=== PATIENT | male | born 1955 | race Caucasian/White ===

== ENCOUNTER 2019-09-23 00:17 | Inpatient (IN) | payer MEDICARE ==
[~2019-09-23] VITALS: Ht 157.5 cm; Wt 59.0 kg
[~2019-09-23 00:17] MED LIST: Ativan1 MG PO; CYCL10 PO; DULOXETINE HCL30 MG PO; GABA400 PO; LORA1 PO; NAPR550 PO; SERT100 PO; SERT50 PO; SERTRALINE; Zoloft100 MG PO
[2019-09-23 00:35] LABS: BASOPHILS ABSOLUTE AUTO 0.08 K/mm3 (0.00-0.23); BASOPHILS PERCENT AUTO 0 % (0-2); EOSINOPHILS ABSOLUTE AUTO 0.12 K/mm3 (0.00-0.68); EOSINOPHILS PERCENT AUTO 0 % (0-6); Hemoglobin 15.4 g/dL (13.5-17.5); IMMATURE GRAN PERCENT AUTO 1 % (0-1); LYMPHOCYTES ABSOLUTE AUTO 2.72 K/mm3 (0.84-5.20); LYMPHOCYTES PERCENT AUTO 10 % (21-46); MONOCYTES PERCENT AUTO 5 % (4-13); Mean Corpuscular HGB 29.8 pg (26.0-34.0); Mean Corpuscular HGB Conc 34.2 g/dL (31.5-36.5); Mean Corpuscular Volume 87 fL (80-100); Mean Platelet Volume 10.6 fL (9.1-12.4); NEUTROPHILS ABSOLUTE AUTO 23.97 K/mm3 (1.96-9.15); NEUTROPHILS PERCENT AUTO 84 % (41-73); Platelet Count 296 K/mm3 (150-400); RDW Coefficient Variation 13.1 % (11.7-14.2); RDW Standard Deviation 42.1 fL (35.1-46.3); Red Blood Cell Count 5.17 M/mm3 (4.30-5.90); White Blood Cell Count 28.59 K/mm3 (4.00-11.30)
[2019-09-23 00:46] LABS: Alanine Aminotransfer (ALT/SGP 30 U/L (12-78); Albumin, Blood 4.1 g/dL (3.4-5.0); Alk Phos 102 U/L (50-136); Anion Gap 8 mmol/L (6-16); Aspartate Aminotrans (AST/SGOT 17 U/L (12-37); Bilirubin, Total 0.4 mg/dL (0.1-1.0); Blood Urea Nitrogen 12 mg/dL (8-24); Bun/Creatinine Ratio 10.5 (12.0-20.0); CO2, Blood 22 mmol/L (21-32); Chloride, Blood 104 mmol/L (98-108); Creatinine, Blood 1.14 mg/dL (0.60-1.20); Globulin, Blood 4.1 g/dL (2.2-4.0); Glomerular Filtration Rate >60 (60-); Glucose, Blood 155 mg/dL (70-99); Potassium, Blood 3.7 mmol/L (3.5-5.5); Sodium, Blood 134 mmol/L (136-145); Total Protein, Blood 8.2 g/dL (6.4-8.2)
--- NOTE | 2019-09-23 06:34 | NUR ---
SUMMARY PT IS A&O X4. ADMITTED TO THE FLOOR WITH RLQ PAIN AND NAUSEA. PAIN MANAGED WITH 50 MCG IV FENTANYL. LR INFUSING PER EMAR @ 100 ML/HR. PT RECIEVED 1 DOSE OF ZOSYN IN THE ER AND 1 LITER OF NS. VSS. PT IS VOIDING WNL, PASSING FLATUS. CALL LIGHT IN REACH
--- NOTE | 2019-09-23 07:35 | NUR ---
recvd report from previous shift RN Sandra, pt sleeping in bed, bed in lowest position, call light within reach, bed rails up x 2
--- NOTE | 2019-09-23 13:33 | NUR ---
INTO [facility] VIA GURNEY. PT VOIDED JUST PRIOR TO DEPARTURE FOR [facility]. REPORTS 5/10 ABDOMINAL PAIN. History, Chart, Medications and Allergies reviewed before start of procedure.NPO STATUS CONFIRMED. LUNGS WITH SCATTERED INSPIRATORY WHEEZES AND RHONCHI THAT CLEAR WITH COUGH NOTED. SATS>90% ON RA. 12 LEAD ECG ORDERED. TEMP 99.3 HR TRENDING 110'S.
--- NOTE | 2019-09-23 13:51 | NUR ---
12 LEAD ECG COMPLETED. HR REMAINS 110'S ST. ABDOMEN DISTENDED AND FIRM-EXTREMELY PAINFUL/TENDER TO PALPATION.
--- NOTE | 2019-09-23 15:04 | NUR ---
09/23/19 1504 Tim Bhagat PRE OP ANTIBIOTICS WERE STARTED ORDERED BY Marcela SIDDIQUI RN
--- NOTE | 2019-09-23 15:28 | NUR ---
rounding on pt, still in surgery
--- NOTE | 2019-09-23 17:37 | NUR ---
SHIFT SUMMARY: PT BACK IN ROOM FROM LAP APPENDECTOMY, THREE GAUZE SITES WITH VERO DRAIN LLQ DRAINING SEROSANGUINOUS LIQUID. PT DENIES N/V, DENIES PAIN, FALLS ASLEEP DURING ASSESSMENT. POSTOP VS COMMENCED AND STABLE, SPO2 96% 2L NC. PT'S MOTHER VISITING PT BRIEFLY. PT TOLERATED CLEAR LIQUID
[2019-09-24 04:01] LABS: BASOPHILS ABSOLUTE AUTO 0.01 K/mm3 (0.00-0.23); BASOPHILS PERCENT AUTO 0 % (0-2); EOSINOPHILS PERCENT AUTO 0 % (0-6); Hematocrit 35.2 % (37.0-53.0); Hemoglobin 11.6 g/dL (13.5-17.5); IMMATURE GRAN ABSOLUTE AUTO 0.11 K/mm3 (0.00-0.10); IMMATURE GRAN PERCENT AUTO 1 % (0-1); LYMPHOCYTES PERCENT AUTO 7 % (21-46); MONOCYTES ABSOLUTE AUTO 0.83 K/mm3 (0.16-1.47); MONOCYTES PERCENT AUTO 5 % (4-13); Mean Corpuscular HGB 29.2 pg (26.0-34.0); Mean Corpuscular Volume 89 fL (80-100); Mean Platelet Volume 10.8 fL (9.1-12.4); NEUTROPHILS ABSOLUTE AUTO 14.81 K/mm3 (1.96-9.15); NEUTROPHILS PERCENT AUTO 87 % (41-73); Platelet Count 172 K/mm3 (150-400); RDW Coefficient Variation 13.4 % (11.7-14.2); RDW Standard Deviation 44.5 fL (35.1-46.3); Red Blood Cell Count 3.97 M/mm3 (4.30-5.90); White Blood Cell Count 16.96 K/mm3 (4.00-11.30)
[2019-09-24 04:18] LABS: Anion Gap 5 mmol/L (6-16); Blood Urea Nitrogen 14 mg/dL (8-24); Bun/Creatinine Ratio 11.8 (12.0-20.0); CO2, Blood 25 mmol/L (21-32); Calcium, Blood 8.4 mg/dL (8.5-10.1); Chloride, Blood 103 mmol/L (98-108); Creatinine, Blood 1.19 mg/dL (0.60-1.20); Glomerular Filtration Rate >60 (60-); Glucose, Blood 121 mg/dL (70-99); Potassium, Blood 4.1 mmol/L (3.5-5.5); Sodium, Blood 133 mmol/L (136-145)
--- NOTE | 2019-09-24 05:19 | NUR ---
SHIFT SUMMARY PT IS POSTOP DAY 1 THIS AM FOR LAP APPENDECTOMY. MENTATION HAS IMPROVED THE NIGHT WENT ON, PT WAS QUITE LETHARGIC BUT IS A&OX4 NOW. ABD IS DISTENDED AND FIRM. PT IS NOT PASSING GAS. EDUCATED AND ENCOURAGED USE OF I.S., PT HAS BEEN USING I.S. 10X PER HOUR AT LEAST. PLEASANT AND COOPERATIVE WITH CARE.DRESSING TO ABD IS C/D/I. VERO DRAIN TO L ABD IS DRAINING SS DRAINAGE, 50 ML OVERNIGHT. WEENED OFF SUPPLEMENTAL O2, O2 SATS CURRENTLY 98% ON RA. PT HAS NOT BEEN ABLE TO VOID TONIGHT, STRAIGHT CATH ORDERED FOR BLADDER SCAN >300 ML. PT HAS BEEN STRAIGHT CATH'D TWICE BY THIS RN. PAIN HAS BEEN TOLERABLE WITH PRN HYDROCODONE. TOLERATED CLEAR LIQUIDS DIET TONIGHT WELL. WILL CONT TO MONITOR AND PROVIDE CARE UNTIL PRESUMED BY ONCOMING RN.
[2019-09-24 15:15] LABS: Source, Urine Catheter
[2019-09-24 15:31] LABS: Bilirubin, Urine Neg (Neg); Blood, Urine 4+ (Neg); Glucose Qualitative, Urine Neg (Neg); Ketones, Urine Neg (Neg); Leukocyte Esterase, Urine Neg (Neg); Nitrite, Urine Neg (Neg); Protein, Urine Neg (Neg); Specific Gravity, Urine 1.005 (1.003-1.022); Urobilinogen, Urine NORM (Normal)
[2019-09-24 15:41] LABS: Appearance, Urine Clear (Clear); Color, Urine Yellow (P-Yellow)
[2019-09-24 15:43] LABS: Bacteria Few /hpf; Red Blood Cells, Urine 0-2 /hpf (0-2); Squamous Epithelial Cells Rare /hpf (Few); White Blood Cells, Urine Not Seen /hpf (0-5)
--- NOTE | 2019-09-24 16:36 | NUR ---
SHIFT SUMMARY PATIENT MEDICATED X1 FOR PAIN IN ABDOMEN. PATIENT DENIES NAUSEA AND SHORTNESS OF BREATH. PATIENT BECAME UPSET THIS MORNING AND THREATENED TO LEAVE IF HE COULD NOT GO SMOKE. PATIENT WALKED OUTSIDE TO SMOKE ANFD THEN RETURNED TO ROOM WITHIN 20 MINUTES. PATIENT APOLOGIZED FOR BEING GRUMPY. BLADDER SCAN SHOWED 700 POSTVOID, RITCHIE INSERTED AND DRAINING WELL. PATIENT ABDOMEN SOFTER AND PATIENT REPORTS REDUCED ABDOMINAL PAIN. FAMILY VISITED TODAY. CALL LIGHT IN REACH.
--- NOTE | 2019-09-25 06:43 | NUR ---
SHIFT SUMMARY PT A/O C/O PAIN IN ABD SAYING IT FEELS TIGHT, ABD IS SEVERELY DISTENDED. MEDICATED PER EMAR X2 FOR PAIN. HE WAS ABLE TO GET SBA TO BSC AND PASS A LOT OF GAS AND HE SAID THIS WAS ABLE TO RELIEVE HIS TIGHTNESS FEELING AND WAS ABLE TO GET TO SLEEP AFTER THAT. RITCHIE DRAINING. VERO DRAIN SEROUS OUTPUT WITH DRESSING GETTING DRAINAGE ON IT TOO NEEDING TO BE CHANGED X2. CAN GET IRRITABLE AT TIMES SAYING "HE'S GOING TO CHECK HIMSELF OUT TOMORROW" AND PULL OUT HIS TUBES. LATER HE APOLIGIZED AND SAID IT WAS THE SITUATION HE WAS FRUSTRATED ABOUT. BED ALARM AND TAB ALARM IN USE FOR SAFETY.
--- NOTE | 2019-09-25 18:29 | NUR ---
SHIFT SUMMARY PT EATING AND DRINKING. PT REPORTED PAIN TOLERABLE T/O DAY. PT BEEN UP WITH STEADY GAIT. PT HAS VERO IN PLACE. PT HAS RITCHIE IN PLACE. PT BEEN ASSISTED WITH ADL'S PRN. PT BEEN MED WITH ABX'S ORDERED.
--- NOTE | 2019-09-25 21:49 | NUR ---
PT OUT SMOKING AT 2129 IND, PUSHING WHEELCHAIR. RETURNED TO UNIT AT 2149
[2019-09-26 04:36] LABS: BASOPHILS ABSOLUTE AUTO 0.03 K/mm3 (0.00-0.23); BASOPHILS PERCENT AUTO 0 % (0-2); EOSINOPHILS ABSOLUTE AUTO 0.16 K/mm3 (0.00-0.68); EOSINOPHILS PERCENT AUTO 2 % (0-6); Hematocrit 36.3 % (37.0-53.0); Hemoglobin 12.2 g/dL (13.5-17.5); IMMATURE GRAN ABSOLUTE AUTO 0.08 K/mm3 (0.00-0.10); IMMATURE GRAN PERCENT AUTO 1 % (0-1); LYMPHOCYTES ABSOLUTE AUTO 1.47 K/mm3 (0.84-5.20); LYMPHOCYTES PERCENT AUTO 14 % (21-46); MONOCYTES ABSOLUTE AUTO 0.77 K/mm3 (0.16-1.47); MONOCYTES PERCENT AUTO 7 % (4-13); Mean Corpuscular HGB 29.3 pg (26.0-34.0); Mean Corpuscular HGB Conc 33.6 g/dL (31.5-36.5); Mean Corpuscular Volume 87 fL (80-100); Mean Platelet Volume 10.7 fL (9.1-12.4); NEUTROPHILS ABSOLUTE AUTO 8.02 K/mm3 (1.96-9.15); NEUTROPHILS PERCENT AUTO 76 % (41-73); Platelet Count 210 K/mm3 (150-400); RDW Coefficient Variation 12.9 % (11.7-14.2); RDW Standard Deviation 40.9 fL (35.1-46.3); Red Blood Cell Count 4.17 M/mm3 (4.30-5.90); White Blood Cell Count 10.53 K/mm3 (4.00-11.30)
--- NOTE | 2019-09-26 05:49 | NUR ---
SHIFT SUMMARY POD #2 S/P RIGHT BKA. A/OX4 W/IN BASELINE; NO ACUTE CHANGES. PT SLEEPING T/O MOST OF SHIFT W/CPAP. R STUMP DRESSING IN PLACE WITH NO DRAINAGE NOTED AND ELEVATED ON PILLOWS. LLE HAS PAS AND ALSO ELEVATED ON PILLOW. MEDICATED ONCE FOR PAIN WITH 2 TABS. REDNESS IN GROIN/SHEMAR AREA HAS DECREASED. TOLERATING REGULAR DIET AND REPORTS PASSING FLATUS.
--- NOTE | 2019-09-26 06:13 | NUR ---
SHIFT SUMMARY PT A/O T/O SHIFT WITH NO ACUTE CHANGES. RITCHIE PATENT AND DRAINING CLEAR, YELLOW URINE. VERO IN PLACE WITH SEROUS DRAINAGE; DRESSING CHANGED. AMBULATED IND IN HALLWAYS AND OUTSIDE DURING SHIFT. DISCUSSED SMOKING CESSATION, PT DECLINED ANY DESIRE TO QUIT. PT CONT. TO HAVE BROWN LIQUID BOWEL MOVEMENTS. REPORTS PASSING GAS. DECLINES NEED FOR PAIN MEDICATIONS.
--- NOTE | 2019-09-26 07:15 | NUR ---
recvd report from previous shift RN Macey/Kait, pt sleeping in bed, bed lowest position, bed rails up x 2, call light within reach
--- NOTE | 2019-09-26 14:00 | NUR ---
provided pt with discharge instructions, printed education material r/t laparascopic appendectomy, removed peripheral IV wnl. pt states understanding ofinstructions. pt has voided in toilet and flushed. pt requests to walk out to awaiting vehicle with his belongings.
== END 2019-09-26 14:04 | disposition home or self-care (01) | DRG 340 ==
LOC: ER 00:17 → SURS 02:08
PROVIDERS: Emergency Medicine; Surgery; ADMIT Surgery
PROC: 0DTJ4ZZ Resection of Appendix, Percutaneous Endoscopic Approach (ICD-10-PCS; principal; 2019-09-23 14:00)
DX: K35.32 Acute appendicitis with perforation, localized peritonitis, and gangrene, without abscess (principal); J70.5 Respiratory conditions due to smoke inhalation; F17.200 Nicotine dependence, unspecified, uncomplicated; F25.0 Schizoaffective disorder, bipolar type
CPT/HCPCS: 36415; 74177; 80048; 80053; 81001; 83690; 85025; 88304; 93005; 93010; 96365-59; 96375; 99285-25; A9270-GY; J1100; J1650; J1885; J2250; J2405; J2543; J2704; J2710; J3010; J7030; J7050; J7120; Q9967

== ENCOUNTER 2020-05-07 13:34 | Emergency (ER) | payer MEDICARE ==
[~2020-05-07] VITALS: Ht 160 cm; Wt 64.0 kg
[2020-05-07 14:18] LABS: BASOPHILS ABSOLUTE AUTO 0.03 K/mm3 (0.00-0.23); BASOPHILS PERCENT AUTO 0 % (0-2); EOSINOPHILS ABSOLUTE AUTO 0.13 K/mm3 (0.00-0.68); EOSINOPHILS PERCENT AUTO 1 % (0-6); Hematocrit 44.2 % (37.0-53.0); IMMATURE GRAN ABSOLUTE AUTO 0.06 K/mm3 (0.00-0.10); IMMATURE GRAN PERCENT AUTO 1 % (0-1); LYMPHOCYTES ABSOLUTE AUTO 2.27 K/mm3 (0.84-5.20); LYMPHOCYTES PERCENT AUTO 21 % (21-46); MONOCYTES ABSOLUTE AUTO 0.57 K/mm3 (0.16-1.47); MONOCYTES PERCENT AUTO 5 % (4-13); Mean Corpuscular HGB 28.7 pg (26.0-34.0); Mean Corpuscular HGB Conc 33.9 g/dL (31.5-36.5); Mean Corpuscular Volume 85 fL (80-100); Mean Platelet Volume 10.5 fL (9.1-12.4); NEUTROPHILS ABSOLUTE AUTO 7.57 K/mm3 (1.96-9.15); NEUTROPHILS PERCENT AUTO 71 % (41-73); Platelet Count 212 K/mm3 (150-400); RDW Coefficient Variation 13.6 % (11.7-14.2); RDW Standard Deviation 41.8 fL (35.1-46.3); Red Blood Cell Count 5.23 M/mm3 (4.30-5.90); White Blood Cell Count 10.63 K/mm3 (4.00-11.30)
[2020-05-07 14:26] LABS: Source, Urine Clean Catch
[2020-05-07 14:33] LABS: Alanine Aminotransfer (ALT/SGP 28 U/L (12-78); Albumin, Blood 3.9 g/dL (3.4-5.0); Albumin/Globulin Ratio 0.9 (0.8-1.8); Alk Phos 104 U/L (50-136); Anion Gap 7 mmol/L (6-16); Aspartate Aminotrans (AST/SGOT 22 U/L (12-37); Bilirubin, Total 0.6 mg/dL (0.1-1.0); Blood Urea Nitrogen 14 mg/dL (8-24); Bun/Creatinine Ratio 11.8 (12.0-20.0); CO2, Blood 22 mmol/L (21-32); Calcium, Blood 8.7 mg/dL (8.5-10.1); Chloride, Blood 106 mmol/L (98-108); Creatinine, Blood 1.19 mg/dL (0.60-1.20); Ethanol (Alcohol), Blood, Med <3 mg/dL; Globulin, Blood 4.3 g/dL (2.2-4.0); Glomerular Filtration Rate >60 (60-); Glucose, Blood 178 mg/dL (70-99); Potassium, Blood 3.8 mmol/L (3.5-5.5); Salicylate 2.6 mg/dL (2.8-20.0); Sodium, Blood 135 mmol/L (136-145); Total Protein, Blood 8.2 g/dL (6.4-8.2)
[2020-05-07 14:34] LABS: Bilirubin, Urine Neg (Neg); Blood, Urine 1+ (Neg); Glucose Qualitative, Urine Neg (Neg); Ketones, Urine Neg (Neg); Leukocyte Esterase, Urine Neg (Neg); Nitrite, Urine Neg (Neg); Protein, Urine 3+ (Neg); Specific Gravity, Urine 1.015 (1.003-1.022); Urobilinogen, Urine NORM (Normal)
[2020-05-07 14:35] LABS: Acetaminophen, Random <2.0 ug/mL (10.0-30.0)
[2020-05-07 14:44] LABS: Thyroxine (T4) 7.2 ug/dL (4.5-12.1)
[2020-05-07 14:44] LABS: Appearance, Urine Clear (Clear); Color, Urine Yellow (P-Yellow)
[2020-05-07 14:45] LABS: Thyroid Stimulating Hormone 1.21 uIU/mL (0.360-4.800)
[2020-05-07 14:46] LABS: Bacteria Rare /hpf; Red Blood Cells, Urine 0-2 /hpf (0-2); Squamous Epithelial Cells Rare /hpf (Few); White Blood Cells, Urine 0-2 /hpf (0-5)
[2020-05-07 15:02] LABS: U Amphetamine Screen Not Detected; U Barbituate Screen Not Detected; U Benzodiazapine Screen Not Detected; U Buprenorphine Screen Not Detected; U Cannabinoids Screen Not Detected; U Cocaine Screen Not Detected; U Methadone Screen Not Detected; U Methamphetamine Screen Not Detected; U Opiates Screen Not Detected; U Oxycodone Screen Not Detected; U Phencyclidine Screen Not Detected; U Propoxyphene Screen Not Detected
== END 2020-05-07 15:01 | disposition home or self-care (01) ==
LOC: ER 13:34
PROVIDERS: Physician Assistant
DX: F43.10 Post-traumatic stress disorder, unspecified (principal); F32.9 Major depressive disorder, single episode, unspecified; F25.9 Schizoaffective disorder, unspecified; Z88.5 Allergy status to narcotic agent; Z88.8 Allergy status to other drugs, medicaments and biological substances; Z79.899 Other long term (current) drug therapy
CPT/HCPCS: 36415; 80053; 81001; 84436; 84443; 85025; 99285; G0480